=== PATIENT | female | born 1945 | race Caucasian/White ===

== ENCOUNTER 2017-08-10 11:03 | Outpatient (CLI) | payer OTHER ==
--- NOTE | 2017-08-10 13:25 | RAD ---
2 VIEWS OF CHEST: Date: 08/10/17 COMPARISON: None. HISTORY: Cough. FINDINGS: Two views of the chest show normal sized cardiomediastinal silhouette with atherosclerotic calcificat ions in the aorta. There is a large hiatal hernia. There is no evidence of consolidation, mass, or pl eural effusion. Surgical clips project over the right chest wall. IMPRESSION: 1. No evidence of acute cardiopulmonary disease. 2. Hiatal hernia. POS: JUAN
== END 2017-08-10 11:04 | disposition home or self-care (01) ==
LOC: RAD-FRANK 11:03
PROVIDERS: ATTEND Nurse Practitioner Family
DX: J40 Bronchitis, not specified as acute or chronic (principal); R05 Cough; K44.9 Diaphragmatic hernia without obstruction or gangrene
CPT/HCPCS: 71046

== ENCOUNTER 2019-10-05 14:22 | Emergency (ER) | payer MEDICARE, MEDICAID ==
--- NOTE | 2019-10-05 15:09 | RAD ---
EXAM: CHEST ONE VIEW HISTORY: Hypoxia COMPARISON: 08/10/2017 FINDINGS: Cardiac silhouette is enlarged. There is persistent elevation of the right hemidiaphragm. Increased d ensity is seen posterior lower mediastinum likely due to large hiatal hernia seen on prior study. Atelectasis is present at the right lung base. Increased interstitial densities are seen bilaterally. Multiple surgical clips are again seen overlying the right chest, right axillary region, and right abdomen. Postsurgical changes left shoulder are again seen. Osteopenia is present. Vascular calcifica tions are seen in a tortuous thoracic aorta. IMPRESSION: 1. Mild increase in interstitial densities which may be related to mild pulmonary edema or infectious process. 2. Large hiatal hernia. 3. Elevation right hemidiaphragm with volume loss right lung base. 4. Osteopenia.
--- NOTE | 2019-10-05 15:43 | CT ---
CT THORACIC SPINE WITHOUT CONTRAST: 10/05/19 HISTORY: Fall. Pain. COMPARISON: Reference is made to a radiograph of the chest, 08/10/17. FINDINGS: There is scar throughout the lung parenchyma. There is a large stomach containing hiatal hernia with near the entire gastric contents in the left thoracic cavity. The aortic contour is tortuous. Moderate vascular calcifications. The pulmonary trunk is dilated measuring up to 3 cm. Ascending aorta measures up to 3.7 cm in size. No hydronephrosis is appreciated. The thoracic spine is without acute compression deformity. Spinous processes are intact. The transverse processes are intact. There is a compression fracture of L1 involving the anterior vertebral body and inferior end plate wi th approximately 20% height loss. Fracture does extend to the posterior vertebral body wall with 1 mm retropulsion of the posterior inferior end plate. IMPRESSION: 1. No acute thoracic spine fracture. 2. Compression fracture of L1 involving the inferior end plate and anterior vertebral body with extension to the posterior vertebral body. There is 20% anterior height loss as well as 1-2 mm retrop ulsion of the posterior inferior end plate. 3. Large stomach containing left sided diaphragmatic hernia with majority of the gastric content s within the thoracic cavity. 4. Dilated pulmonary trunk suggesting pulmonary hypertension. 5. Aortic size upper limits of normal. POS: HOME
--- NOTE | 2019-10-05 15:49 | CT ---
CT LUMBAR SPINE WITHOUT CONTRAST: 10/05/19 HISTORY: Fall. Pain. COMPARISON: None. FINDINGS: The aortic contour is not aneurysmal. Moderate atherosclerotic plaque. No free fluid within the pelvi s. Moderate diverticular disease in the sigmoid colon without active current inflammation. There is a compression fracture of L1 involving the anterior and posterior vertebral body and inferio r end plate with anterior 20% height loss. 1-2 mm retropulsion of the posterior inferior end plate of L1. Chronic bilateral pars interarticularis defect at L5 without significant anterolisthesis. Moderate fa cet arthrosis throughout the lumbar spine. The lumbar spine transverse processes are intact. The spinous processes are intact. The visualized po sterior ribs are intact. The sacrum appears to be intact. No SI joint widening. IMPRESSION: 1. Acute L1 compression deformity with 20% anterior height loss as well as the extension to the posterior vertebral body and posterior inferior end plate with 1-2 mm retropulsion of the posterior i nferior end plate. Large circumferential disc bulge at L2-3. High grade neural foraminal narrowing o n the right as well as spinal canal narrowing of 6 mm. 2. Circumferential disc bulges of L3-4, L4-5, and L5-S1 with moderate neural foraminal and spina l canal narrowing. POS: HOME
--- NOTE | 2019-10-05 15:54 | CT ---
CT PELVIS WITHOUT CONTRAST: 10/05/19 HISTORY: Pain. Fall. There are disc bulges at L4-5 and L5-S1 with moderate spinal canal and neural foraminal narrowing. P ars interarticularis defects at L5. There is high grade degenerative disease of the pubic symphysis, chronic in nature. There is avascul ar necrosis of the right femoral head with large subcortical cysts, 2-3 mm articular surface depressi on of approximately 50% of the articular surface of the right femoral head. No SI joint widening. The pubic symphysis has moderate degenerative disease. Ilium and acetabulum are intact bilaterally. The femoral necks and the intertrochanteric regions are intact. The sacral struts are intact. IMPRESSION: 1. No acute displaced fracture of the pelvis. 2. 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 3. 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 4. Bilateral L5 pars interarticularis defects without significant anterolisthesis. 5. Disc bulges of the lower lobar spine with moderate spinal canal and neural foraminal narrowin g. 6. Diverticular disease sigmoid colon without active current inflammation. 7. No acute displaced fracture of the pelvis. POS: HOME
[2019-10-05 16:22] LABS: #Lymphocytes 1.2 thou/uL (1.20-3.40); #Monocytes 1.3 thou/uL (0.11-0.59); #Neutrophils 15.5 thou/uL (1.40-6.50); %Basophils 0.2 % (0.0-1.0); %Eosinophils 0.2 % (0.0-10.0); %Lymphocytes 6.8 % (21.0-51.0); %Neutrophils 85.8 % (42.0-75.0); Hemoglobin 13.7 g/dL (12.0-16.0); Mean Corpuscular Hemoglobin 30.8 pg (27.0-31.0); Mean Corpuscular Volume 90.6 fL (78.0-98.0); Mean Platelet Volume 7.9 fL (7.4-10.4); Platelet Count 217 thou/uL (130-400); RBC Distribution Width 12.2 % (11.5-14.5); Red Blood Cell (RBC) Count 4.43 mill/uL (4.20-5.40); White Blood Cell (WBC) Count 18.1 thou/uL (4.8-10.8)
[2019-10-05 16:47] LABS: ALT (SGPT) 22 U/L (8-55); AST (SGOT) 22 U/L (5-34); Albumin 4.1 g/dL (3.4-4.8); Alkaline Phosphatase 161 U/L (40-110); Anion Gap 16 mmol/L (10-20); BUN (Urea Nitrogen) 16 mg/dL (9.8-20.1); Bilirubin, Total 1.6 mg/dL (0.2-1.2); Calc. Creatinine Clearance 0 mL/min (70-130); Calcium 9.4 mg/dL (7.8-10.44); Carbon Dioxide 24 mmol/L (23-31); Chloride 103 mmol/L (98-107); Estimated GFR-MDRD 82; Globulin 2.9 g/dL (2.4-3.5); Glucose 121 mg/dL (83-110); Potassium 4.1 mmol/L (3.5-5.1); Sodium 139 mmol/L (136-145)
[2019-10-05 18:48] LABS: Bacteria/HPF 4+ HPF (None Seen); Bilirubin Negative (Negative); Blood, Urine Negative (Negative); Clarity Turbid (Clear); Glucose, Urine (Dipstick) Normal (Negative); Leukocyte 75 Leu/uL (Negative); Nitrite Negative (Negative); Protein, Urine (Dipstick) 30 mg/dL (Neg-Trace); RBC/HPF 0-3 HPF (0-3); Squamous Epithelial 0-3 HPF (0-3); Urobilinogen Normal mg/dL (Less than 2); WBC/HPF 21-50 HPF (0-3)
== END 2019-10-05 22:33 ==
LOC: ERS 14:22
DX: S32.019A Unspecified fracture of first lumbar vertebra, initial encounter for closed fracture (principal); R53.1 Weakness; I10 Essential (primary) hypertension; K21.9 Gastro-esophageal reflux disease without esophagitis; E78.5 Hyperlipidemia, unspecified; Z79.1 Long term (current) use of non-steroidal anti-inflammatories (NSAID); Z79.899 Other long term (current) drug therapy; W17.89XA Other fall from one level to another, initial encounter
CPT/HCPCS: 36415; 51701; 71045; 72128; 72131; 72192; 80053; 81003; 81015; 83605; 85025; L0639

== ENCOUNTER 2020-02-03 08:49 | Outpatient (CLI) | payer MEDICARE, MEDICAID ==
--- NOTE | 2020-02-03 10:37 | MRI ---
MR the lumbar spine without contrast INDICATION: 74-year-old female with history of L1 vertebral body compression fracture status post fal l 7 8 months ago COMPARISON: CT of the lumbar spine dated October 05, 2019 TECHNIQUE: Multiplanar multisequence MR images were obtained of lumbar spine without IV contrast. FINDINGS: Bone marrow: There is worsening loss of height involving the moderate wedge compression fracture of L 1. There is approximately 60% loss of vertebral body height. Mild residual edema is present within the L1 vertebral body. No retropulsed bone fragments are seen from L1. No additional acute fracture i s noted. Distal spinal cord and conus: Normal The conus seen to terminate at T12-L1. Visualized retroperitoneum and paraspinal soft tissues: Normal. Vertebral levels: L5-S1: There is a broad-based disc bulge with a superimposed right paracentral fissure measuring 1.3 cm. There is loss of the normal disc space height. There are bilateral pars defects. There is grade 1 anterolisthesis. There is mild bilateral neural foraminal narrowing.. L4-5: There is a broad-based disc bulge with ligamentum flavum hypertrophy and facet joint degenerati ve change inducing mild to moderate central canal narrowing. There is [id number] right and moderate left neural foraminal narrowing at this level. L3-4: There is a broad-based bulge with facet hypertrophy inducing mild central canal narrowing and m ild bilateral neural foraminal narrowing. L2-3: There is a broad-based disc bulge with facet hypertrophy inducing moderate central canal narrow ing with severe right and mild left neural foraminal narrowing. L1-L2: There is a broad-based disc bulge with facet hypertrophy inducing mild central canal narrowing . There is mild bilateral neural foraminal narrowing. T12-L1: There is a mild broad-based bulge but no appreciable central canal or neural foraminal narrow ing. IMPRESSION: 1. Worsening loss of height of the wedge compression fracture of L1. 2. Bilateral pars defects at L5 with grade 1 anterolisthesis and mild bilateral neural foraminal narr owing at L5-S1. 3. Moderate central canal narrowing with severe right and mild left neural foraminal narrowing at L2- 3. 4. Mild to moderate central canal narrowing with [id number] right and moderate left neural fora millicent narrowing at L4-5. 5. Mild central canal narrowing mild bilateral neural foraminal narrowing at L3-4 and L1-L2.
--- NOTE | 2020-02-03 10:53 | RAD ---
XR Lumbar Spine 2 Or 3 View HISTORY: Follow-up of compression fracture. COMPARISON: 11/06/2019 exam. FINDINGS: The bones are diffusely demineralized mild scoliotic change convex to the left is noted. Th e compression changes involving the inferior endplate of L1 are similar to the prior examination. The minimal retrolisthesis is also stable. There is moderate degenerative disc narrowing at L2-3. Deg enerative facet changes are noted. Extensive atherosclerosis. IMPRESSION: Stable exam.
== END 2020-02-03 08:50 | disposition home or self-care (01) ==
LOC: BICMRI 08:49
PROVIDERS: ATTEND Surgery
DX: S32.010A Wedge compression fracture of first lumbar vertebra, initial encounter for closed fracture (principal); M54.5 Low back pain; M79.606 Pain in leg, unspecified; W19.XXXA Unspecified fall, initial encounter; M43.16 Spondylolisthesis, lumbar region; M48.07 Spinal stenosis, lumbosacral region; M48.061 Spinal stenosis, lumbar region without neurogenic claudication
CPT/HCPCS: 72100; 72148

== ENCOUNTER 2020-08-15 20:15 | Emergency (ER) | payer MEDICARE, OTHER ==
[~2020-08-15 20:15] MED LIST: Atropine Sulfate 1 mg/10 ml Syringe ONE; EPINEPHrine 1 MG/10 ML Abboject SYRINGE ONE; Sodium Bicarb 50 MEQ/50 ML Abboject 8.4% SYRINGE ONE
--- NOTE | 2020-08-15 21:02 | RAD ---
RADIOGRAPH CHEST 1 VIEW: DATE: 08/15/2020 TIME: 8:45 PM HISTORY: 75-year-old female with dyspnea COMPARISON: 10/05/2019 FINDINGS: New alveolar infiltrates-consolidations at left mid and lower lung zones. New small peripheral infiltrates at lateral aspect of right mid lung zone. Again noted is the large number of surgical clips at the right chest wall, and abdomen. No pneumothorax.. IMPRESSION: Bilateral pneumonia
[2020-08-15 21:20] LABS: Hemoglobin 15.2 g/dL (12.0-16.0); Mean Corpuscular HGB CONC 32.9 g/dL (32.0-36.0); Mean Corpuscular Hemoglobin 30.5 pg (27.0-31.0); Mean Corpuscular Volume 92.7 fL (78.0-98.0); Mean Platelet Volume 8.7 fL (7.4-10.4); Platelet Count 179 thou/uL (130-400); RBC Distribution Width 12.3 % (11.5-14.5); Red Blood Cell (RBC) Count 4.98 mill/uL (4.20-5.40); White Blood Cell (WBC) Count 23.2 thou/uL (4.8-10.8)
[2020-08-15 21:21] LABS: Band 7 % (5-11); Eosinophils 1 % (0-10); Lymphocytes 6 % (21-51); MDiff Complete? YES; Monocytes 3 % (0-10); Neutrophil 83 % (42-75); Platelet Morphology Comment Appears Adequate
[2020-08-15] MEDS ORDERED: Cefepime 2 GM VIAL ONE (21:29)
[2020-08-15 21:31] LABS: ALT (SGPT) 22 U/L (8-55); AST (SGOT) 19 U/L (5-34); Albumin 3.6 g/dL (3.4-4.8); Alkaline Phosphatase 178 U/L (40-110); Anion Gap 15 mmol/L (10-20); BUN (Urea Nitrogen) 57 mg/dL (9.8-20.1); Bilirubin, Total 1.7 mg/dL (0.2-1.2); Calc. Creatinine Clearance 0 mL/min (70-130); Calcium 9.3 mg/dL (7.8-10.44); Carbon Dioxide 26 mmol/L (23-31); Chloride 105 mmol/L (98-107); Globulin 3.9 g/dL (2.4-3.5); Glucose 129 mg/dL (83-110); Potassium 4.3 mmol/L (3.5-5.1); Protein, Total 7.5 g/dL (5.8-8.1); Sodium 142 mmol/L (136-145)
[2020-08-15] MEDS ORDERED: Vancomycin 1.5 GRAM/300 ML BAG 1.5 GM in Premix Bag 1 BAG IVPB SCH (21:45)
[2020-08-15] MEDS ORDERED: Acetaminophen 325 MG TAB ONE (21:55)
[2020-08-15 22:12] LABS: Bacteria/HPF 4+ HPF (None Seen); Bilirubin Negative (Negative); Blood, Urine Negative (Negative); Clarity Clear (Clear); Glucose, Urine (Dipstick) Normal (Negative); Ketone, Urine Negative (Negative); Leukocyte 25 Leu/uL (Negative); Nitrite Negative (Negative); Protein, Urine (Dipstick) 20 mg/dL (Neg-Trace); RBC/HPF 0-3 HPF (0-3); Squamous Epithelial 0-3 HPF (0-3); Urobilinogen Normal mg/dL (Less than 2); pH, Urine 5.5 (5.0-9.0)
[2020-08-15 22:42] LABS: Actual Bicarbonate (HCO3a) 18.5 mEq/L (22-28); Base Excess (BEa) -6.8 mEq/L (-2.0 to +3.0); CO2 Tension 36.5 mmHg (35.0-45.0); Calcium, Ionized (arterial) 1.14 mmol/L (1.12-1.30); Carboxyhemoglobin (COHb) 0.6 gm% (0.0-3.0); Potassium - ABG Lab 3.93 mmol/L (3.70-5.30); pH, Arterial 7.32 (7.35-7.45)
[2020-08-15 22:49] LABS: O2 Tension (PaO2), arterial 49.3 mmHg (> 70.0)
[2020-08-15 22:50] LABS: ALV-art Gradient 618.075 mmHg (0-20)
[2020-08-15] MEDS ORDERED: Norepinephrine 8 MG/0.9% NS 250 ML ONE (23:02)
[2020-08-15] MEDS ORDERED: DOBUTamine 500 mg/250 ml 250 ML ONE (23:23)
[2020-08-15 23:27] LABS: SARS-CoV-2 NAA Rapid Test DETECTED (NotDetected)
[2020-08-15] MEDS ORDERED: EPINEPHrine 1 MG/10 ML Abboject SYRINGE ONE (23:27)
[2020-08-15] MEDS ORDERED: Fentanyl CADD 100 ML IV SCH (23:45)
[2020-08-15] MEDS ORDERED: Enoxaparin Sodium 100 MG/ML SYRINGE ONE (23:51)
--- NOTE | 2020-08-16 00:12 | RAD ---
RADIOGRAPH CHEST 1 VIEW: DATE: 08/15/2020 TIME: 11:50 PM HISTORY: 75-year-old female status post cardiac arrest. Status post intubation. Dr. Husain notified the washhouse worker of the position of the endotracheal tube at time of this dictat ion. COMPARISON: 08/15/2020 8:45 PM FINDINGS: There is a new endotracheal tube with distal tip at the origin of the right mainstem bronchus. There is a new esophageal catheter with distal tip overlying the lower left portion of the cardiac sh adow, presumably in the distal esophagus. There is a new defibrillation paddle overlying the central chest. Supine positioning makes this insensitive for pneumothorax detection. Diffuse haziness of the left lung is a new finding. Peripheral mild right infiltrates are unchanged. IMPRESSION: 1) status post intubation of endotracheal tube at origin of right mainstem bronchus. 2.) Diffuse haziness of the left lung 3) status post esophagogastric tube placement with distal tip at the left lower chest, presumably in distal esophagus.
--- NOTE | 2020-08-16 00:25 | PDOC.HHP ---
Hospitalist HPI Shortness of breath History of Present Illness: 75-year-old female past medical history of hypertension, dementia, HLD, recent Covid infection 2 [facility] ago [facility] because of increasing shortness of breath and weakness. Patient reportedly was on 2 L nasal cannula at the [facility] but was dyspneic and noted with hypoxia with O2 sat in the 80s. She was transferred to the ED where on presentation her O2 sat was 92% on 4 L. Patient chest x-ray shows bilateral lower lobe infiltrates. Decision was made to admit patient at the time of my evaluation patient was markedly dyspneic with blood pressure in the 60s over 40s. Allergies/Adverse Reactions: Allergy/AdvReac Type Severity Reaction Status Date / Time No Known Drug Allergies Allergy Verified 08/15/20 21:31 Past History: PMHx: PSHx: FHx: Social: Hospitalist HPI ROS ROS unobtainable: due to mental status Hospitalist Exam General Appearance: ill appearing General - other findings: Markedly dyspneic and tachypneic Eye: PERRL, anicteric sclera ENT: dry oral mucosa Neck: supple, symmetric Heart - other findings: Marked tachycardic, cold and clammy extremities Respiratory: no rales, no ronchi, tachypneic Gastrointestinal: soft, non-tender, non-distended, no rigidity Extremities: no cyanosis, no clubbing Skin: normal turgor, no lesions Neurological: cranial nerve grossly intact, normal sensation to touch Musculoskeletal: normal tone, normal strength Hospitalist Results Result Diagrams: 08/15/20 20:50 08/15/20 20:50 Lab results: Laboratory Last Values WBC 23.2 thou/uL (4.8-10.8) H 08/15/20 20:50 RBC 4.98 mill/uL (4.20-5.40) 08/15/20 20:50 Hgb 15.2 g/dL (12.0-16.0) 08/15/20 20:50 Hct 46.2 % (36.0-47.0) 08/15/20 20:50 MCV 92.7 fL (78.0-98.0) 08/15/20 20:50 MCH 30.5 pg (27.0-31.0) 08/15/20 20:50 MCHC 32.9 g/dL (32.0-36.0) 08/15/20 20:50 RDW 12.3 % (11.5-14.5) 08/15/20 20:50 Plt Count 179 thou/uL (130-400) 08/15/20 20:50 MPV 8.7 fL (7.4-10.4) 08/15/20 20:50 Neutrophils % (Manual) 83 % (42-75) H 08/15/20 20:50 Band Neuts % (Manual) 7 % (5-11) 08/15/20 20:50 Lymphocytes % (Manual) 6 % (21-51) L 08/15/20 20:50 Monocytes % (Manual) 3 % (0-10) 08/15/20 20:50 Eosinophils % (Manual) 1 % (0-10) 08/15/20 20:50 Plt Morphology Comment Appears Adequate 08/15/20 20:50 D-Dimer Greater than 20.00 *mcg/mL (0.27-0.43) H 08/15/20 20:54 Specimen Type ARTERIAL 08/15/20 22:34 Bicarbonate Actual 18.5 mEq/L (22-28) L 08/15/20 22:34 ABG pH 7.32 (7.35-7.45) L 08/15/20 22:34 ABG pCO2 36.5 mmHg (35.0-45.0) 08/15/20 22:34 ABG pO2 49.3 mmHg (> 70.0) L* 08/15/20 22:34 ABG O2 Sat (Measured) 82.8 % (94.0-98.0) L* 08/15/20 22:34 ABG O2 Content 16.1 vol% (18.0-21.0) L 08/15/20 22:34 ABG Base Excess -6.8 mEq/L (-2.0 to +3.0) L 08/15/20 22:34 ABG Hematocrit 41.0 % (36.0-47.0) 08/15/20 22:34 ABG Hemoglobin 14.0 g/dL (12.0-16.0) 08/15/20 22:34 ABG Oxyhemoglobin 82.1 % (94.0-98.0) L 08/15/20 22:34 ABG Carboxyhemoglobin 0.6 gm% (0.0-3.0) 08/15/20 22:34 ABG Methemoglobin 0.30 gm% (0.04-1.52) 08/15/20 22:34 ABG Deoxyhemoglobin 17.0 % (0.0-2.9) H 08/15/20 22:34 Damien Test Not Reportable 08/15/20 22:34 A-a O2 Gradient 618.075 mmHg (0-20) H 08/15/20 22:34 Sodium 144 mmol/L (135-148) 08/15/20 22:34 Potassium 3.93 mmol/L (3.70-5.30) 08/15/20 22:34 Chloride 113 mmol/L (98-106) H 08/15/20 22:34 Ionized Calcium 1.14 mmol/L (1.12-1.30) 08/15/20 22:34 Mode of Support NRM 08/15/20 22:34 Inspired O2 100 % 08/15/20 22:34 Sodium 142 mmol/L (136-145) 08/15/20 20:50 Potassium 4.3 mmol/L (3.5-5.1) 08/15/20 20:50 Chloride 105 mmol/L (98-107) 08/15/20 20:50 Carbon Dioxide 26 mmol/L (23-31) 08/15/20 20:50 Anion Gap 15 mmol/L (10-20) 08/15/20 20:50 BUN 57 mg/dL (9.8-20.1) H 08/15/20 20:50 Creatinine 1.42 mg/dL (0.6-1.1) H 08/15/20 20:50 Estimated GFR (MDRD) 36 08/15/20 20:50 Glucose 129 mg/dL (83-110) H 08/15/20 20:50 Lactic Acid 1.3 mmol/L (0.5-2.2) 08/15/20 20:50 Calcium 9.3 mg/dL (7.8-10.44) 08/15/20 20:50 Total Bilirubin 1.7 mg/dL (0.2-1.2) H 08/15/20 20:50 AST 19 U/L (5-34) 08/15/20 20:50 ALT 22 U/L (8-55) 08/15/20 20:50 Alkaline Phosphatase 178 U/L (40-110) H 08/15/20 20:50 CK-MB (CK-2) 1.0 ng/mL (0-6.6) 08/15/20 20:50 Troponin I 0.032 ng/mL (< 0.028) H 08/15/20 20:50 B-Natriuretic Peptide 36.3 pg/mL (0-100) 08/15/20 20:51 Serum Total Protein 7.5 g/dL (5.8-8.1) 08/15/20 20:50 Albumin 3.6 g/dL (3.4-4.8) 08/15/20 20:50 Globulin 3.9 g/dL (2.4-3.5) H 08/15/20 20:50 Albumin/Globulin Ratio 0.9 g/dL (1.2-2.2) L 08/15/20 20:50 Urine Color Yellow (Yellow) 08/15/20 21:46 Urine Clarity Clear (Clear) 08/15/20 21:46 Urine pH 5.5 (5.0-9.0) 08/15/20 21:46 Ur Specific [place] 1.020 (1.002-1.036) 08/15/20 21:46 Urine Protein 20 mg/dL (Neg-Trace) 08/15/20 21:46 Urine Glucose (UA) Normal mg/dL (Negative) 08/15/20 21:46 Urine Ketones Negative mg/dL (Negative) 08/15/20 21:46 Urine Blood Negative (Negative) 08/15/20 21:46 Urine Nitrite Negative (Negative) 08/15/20 21:46 Urine Bilirubin Negative (Negative) 08/15/20 21:46 Urine Urobilinogen Normal mg/dL (Less than 2) 08/15/20 21:46 Ur Leukocyte Esterase 25 Lucita/uL (Negative) A 08/15/20 21:46 Urine RBC 0-3 HPF (0-3) 02 21:46 Urine WBC 4-6 HPF (0-3) A 08/15/20 21:46 Ur Squamous Epith Cells 0-3 HPF (0-3) 08/15/20 21:46 Urine Bacteria 4+ HPF (None Seen) A 08/15/20 21:46 Influenza A RNA INAAT Not Detected (NotDetected) 08/15/20 22:27 Influenza B RNA INAAT Not Detected (NotDetected) 08/15/20 22:27 SARS-CoV-2 Rap RNA(RT-PCR) DETECTED (NotDetected) A* 08/15/20 22:27 Chest x-ray Additional Comments: Images reviewed by me, bilaterally infiltrate, Hospitalist H&P A/P (1) Pneumonia due to COVID-19 virus Code(s): U07.1 - COVID-19; J12.82 - PNEUMONIA DUE TO CORONAVIRUS DISEASE 2018 Status: Acute (2) Acute respiratory failure due to COVID-19 Code(s): U07.1 - COVID-19; J96.00 - ACUTE RESPIRATORY FAILURE, UNSP W HYPOXIA OR HYPERCAPNIA Status: Acute (3) Septic shock Code(s): A41.9 - SEPSIS, UNSPECIFIED ORGANISM; R65.21 - SEVERE SEPSIS WITH SEPTI C SHOCK Status: Acute (4) Dementia Code(s): F03.90 - UNSPECIFIED DEMENTIA WITHOUT BEHAVIORAL DISTURBANCE Status: Acute Plan: At the time of evaluation , patient was markedly decompensating.patient next of domenica called on phone and discussed with. He is agreeable to a short of full code if needed. Staff report patient has been given 1 L prior to my arriving in the room. I immediately proceeded to giving patient 2 L normal saline. Patient was also markedly hypoxic and noted to be dyspneic with lip pursing. She was switched to facemask and later BiPAP all within 10 minutes of being evaluated. Initial O2 sats improved to 100% but within 30 minutes patient continued to desat again and decision was made to intubate her. She was also started on Levophed after nonresponse of blood pressure to IV fluid. Subsequent two IV pressors were added. Patient continued to decline and became suddenly bradycardic from initial tachycardia and she given atropine 1 mg with no effect and CPR was started after she was noted with no pulse . Her Covid test reportedly returned positive. After multiple rounds of CPR including four separate epinephrine doses sodium bicarb and repeat a troponin. Patient was subsequently pronounced at 12:13 AM Family called and informed
--- NOTE | 2020-08-16 00:31 | PDOC.DS.DS ---
Provider Date of Admission: t Date of Discharge: 08/16/20 Primary Care Physician: NO PCP PROVIDER Course Hospital Course: R staff report patient has been given 1 L prior to my arriving in the room. I immediately proceeded to give him patient on the 2 L normal saline. Patient was also markedly hypoxic and noted to be dyspneic with lip posturing. She was switched to facemask and later BiPAP all within 10 minutes of being evaluated. Initial O2 sats improved to 100% but within 30 minutes patient continued to desat again and decision was made to intubate her. She was also started on Levophed after nonresponse of blood pressure to IV fluid. Subsequent to IV pressors were added. Patient continued to decline and became suddenly bradycardic from initial tachycardia and she given atropine 1 mg with no effect and CPR was started after she was noted with no pulse . Her Covid test reportedly returned positive. After multiple rounds of CPR including four separate epinephrine doses sodium bicarb and repeat a troponin. During resuscitation patient maintained a PEA rhythm . patient was subsequently pronounced at 12:13 AM Lab Results: 08/15/20 20:50 08/15/20 20:50 Abnormal Lab Results - Last 48 hrs 08/15/20 20:50: Troponin I 0.032 H 08/15/20 20:50: WBC 23.2 H, Neutrophils % (Manual) 83 H, Lymphocytes % (Manual) 6 L 08/15/20 20:50: BUN 57 H, Creatinine 1.42 H, Total Bilirubin 1.7 H, Alkaline Phosphatase 178 H, Globulin 3.9 H, Albumin/Globulin Ratio 0.9 L 08/15/20 20:54: D-Dimer Greater than 20.00 H 08/15/20 21:46: Ur Leukocyte Esterase 25 A, Urine WBC 4-6 A, Urine Bacteria 4+ A 08/15/20 22:27: SARS-CoV-2 Rap RNA(RT-PCR) DETECTED A* 08/15/20 22:34: Bicarbonate Actual 18.5 L, ABG pH 7.32 L, ABG pO2 49.3 L*, ABG O2 Sat (Measured) 82.8 L*, ABG O2 Content 16.1 L, ABG Base Excess -6.8 L, ABG Oxyhemoglobin 82.1 L, ABG Deoxyhemoglobin 17.0 H, A-a O2 Gradient 618.075 H, Chloride 113 H Physical Exam: The patient was seen and examined on the day of discharge. Problem (1) Pneumonia due to COVID-19 virus Code(s): U07.1 - COVID-19; J12.82 - PNEUMONIA DUE TO CORONAVIRUS DISEASE 2019 Status: Acute (2) Acute respiratory failure due to COVID-19 Code(s): U07.1 - COVID-19; J96.00 - ACUTE RESPIRATORY FAILURE, UNSP W HYPOXIA OR HYPERCAPNIA Status: Acute (3) Septic shock Code(s): A41.9 - SEPSIS, UNSPECIFIED ORGANISM; R65.21 - SEVERE SEPSIS WITH SEPT IC SHOCK Status: Acute (4) Dementia Code(s): F03.90 - UNSPECIFIED DEMENTIA WITHOUT BEHAVIORAL DISTURBANCE Status: Acute Plan Allergies: No Known Drug Allergies Allergy (Verified 08/15/20 21:31) Referrals: PROVIDER,NO PCP [Primary Care Provider] - Disposition: HOME Quality CORE MEASURES:: N/A
[2020-08-16 01:17] LABS: Troponin I 0.047 ng/mL (< 0.028)
[2020-08-16] MEDS ORDERED: Vasopressin 20 UNIT, Admixture Fee 1 EACH in Sodium Chloride 0.9% 50 ML IV SCH (23:45)
== END 2020-08-16 00:13 | disposition expired ==
LOC: ERS 20:15
DX: J18.9 Pneumonia, unspecified organism (principal); R79.89 Other specified abnormal findings of blood chemistry; I10 Essential (primary) hypertension; K21.9 Gastro-esophageal reflux disease without esophagitis; E78.5 Hyperlipidemia, unspecified; Z79.899 Other long term (current) drug therapy
CPT/HCPCS: 0240U; 71045; 80053; 82553; 82805; 83605; 83880; 84484; 85025; 85379; 87040; 87077; 87086; 93005; 94002; 94660; J3010; 31500; 51701; 81003; 81015; 87186; 96361; 96365; 96367; 96368; 96372; 96375; 99292; J0171; J0461; J0692; J1250; J1650; J3370